=== PATIENT | female | born 1960 | race Caucasian/White ===

== ENCOUNTER → 2020-03-13 | Outpatient (CLI) | payer BC, OTHER, SELFPAY | LOC: M LABSMTC 10:12 | PROVIDERS: ATTEND Physical Medicine & Rehabilitation | DX: Z03.818 Encounter for observation for suspected exposure to other biological agents ruled out (principal); Z11.59 Encounter for screening for other viral diseases ==

== ENCOUNTER → 2020-03-13 | Outpatient (CLI) | payer OTHER ==
[2020-03-13 11:38] LABS: PLATELET COUNT, AUTOMATED 312 10^3/uL (150-450)
[2020-03-13 11:48] LABS: INR 0.99; PARTIAL THROMBOPLASTIN TIME 28.3 SECONDS (25.0-38.4); PROTHROMBIN TIME 12.8 SECONDS (11.8-14.0)
== END ==
LOC: M LAB 10:46
PROVIDERS: ATTEND Physician Assistant
DX: Z01.812 Encounter for preprocedural laboratory examination (principal); M47.22 Other spondylosis with radiculopathy, cervical region